=== PATIENT | female | born 1960 ===

== ENCOUNTER 2020-05-04 13:17 | Inpatient (IN) | payer OTHER ==
[~2020-05-04] VITALS: Ht 175.3 cm; Wt 78.9 kg
[2020-05-04] MEDS ORDERED: CELEXA 20MG20 MG/TAB PO (14:17)
[2020-05-04] MEDS ORDERED: ONE-A-DAY ESSE1 EACH PO (14:18)
[2020-05-04] MEDS ORDERED: TURMERIC (14:18)
[2020-05-04 15:01] LABS: BASO % 0.2 % (0.0-2.0); EOS # 0.2 (0.0-0.7); EOS % 1.4 % (0-4.0); GRAN # 13.2 (1.4-6.5); GRAN % 79.3 % (42.2-75.2); HEMATOCRIT 41.3 % (37.0-47.0); HEMOGLOBIN 13.8 g/dl (12.5-16.0); LYMPH # 2.3 (1.2-3.4); LYMPH % 13.7 % (20.0-51.0); MEAN CELL VOLUME 93 fl (80.0-100.0); MEAN CORPUSCULAR HEMOGLOBIN 31 pg (27.0-31.0); MEAN CORPUSCULAR HGB CONC 33 g/dl (33.0-37.0); MEAN PLATELET VOLUME 9.2 fl (7.4-10.4); MONO # 0.8 (0.1-0.6); MONO % 4.9 % (1.7-9.3); PLATELET COUNT 244 K/mm3 (130-400); RED BLOOD COUNT 4.45 M/mm3 (4.10-5.30); REDCELL DISTRIBUTION WIDTH-CV 13.2 % (11.5-14.5)
[2020-05-04 15:07] LABS: PROTHROMBIN TIME 11.6 SECONDS (9.7-12.8)
[2020-05-04 15:16] LABS: ALBUMIN 4.3 gm/dL (3.5-5.0); BILIRUBIN,TOTAL 0.4 mg/dL (0.0-1.0); CALCIUM 9.9 mg/dL (8.4-10.2); CREATININE, serum 0.86 (0.52-1.25); POTASSIUM 3.9 mmol/L (3.4-5.0); TOTAL PROTEIN 7.3 gm/dL (6.4-8.2)
[2020-05-04 15:19] VITALS: BP 122/70; PULSE 83; TEMP 99
[2020-05-04 15:24] LABS: PRE ALBUMIN 31.1 mg/dL (17.6-36.0)
[2020-05-04 16:06] LABS: COLLECTION METHOD CLEAN CATCH
--- NOTE | 2020-05-04 16:07 | NUR ---
[employer]bi Sharpshooter met with the patient and the patient's daughter, Nataliya to complete intake. The patient lives in [place] with Nataliya and other family members. The patient has a wheelchair, walker, and cane at her disposal. The patient is independent. The patient does not have a PCP but was agreeable to setting up at [facility]. The patient receives medications from [facility]. The patient does not have advanced directives. The patient is not but has two adult children, Nataliya and Tr. The patient is self-pay. Jeannine [facility], financial counselor consulted. Jeannine to assist with Medicaid application on 2.10 in the morning. The patient will likely be needing post acute rehab. [facility] discussed options. The choices are [facility], [facility], and [facility]. Referrals sent. [facility] contacted Meeta at [facility] regarding PCP for the patient. Dr. India Hamilton is taking new patients. Meeta to fax new patient application to this for the patient to fill out. [facility] collaborated the above information with the patient's nurse.
[2020-05-04 16:13] LABS: MUCOUS Present /lpf; PH 9 (5-8); SQUAMOUS EPITHELIAL 20-50 /hpf; URINE APPEARANCE Cloudy; URINE BACTERIA Moderate /hpf; URINE BILIRUBIN Negative (NEGATIVE); URINE BLOOD 1+ (NEGATIVE); URINE COLOR Yellow; URINE GLUCOSE Negative (NEGATIVE); URINE KETONE Negative (NEGATIVE); URINE LEUKOCYTE ESTERASE 3+ (NEGATIVE); URINE NITRATE Negative (NEGATIVE); URINE PROTEIN(semi-quant) 1+ (NEGATIVE); URINE RBC 0-2 /hpf; URINE UROBILINOGEN Negative (NEGATIVE)
--- NOTE | 2020-05-04 16:29 | NUR ---
Vinayak from ortho in to see patient. Dr. Wright in to see patient.
--- NOTE | 2020-05-04 18:41 | NUR ---
Patient doing well this afternoon, sitting up eating dinner, daughter at bedside. Denies pain at this time. Pedal pulses intact. Prince hose to LLE. Daughter at bedside. Denies furhter needs at this time. Reported off to awake overnight monitor.
[2020-05-04 19:56] VITALS: BP 98/66; PULSE 85; TEMP 98.7
--- NOTE | 2020-05-04 20:44 | NUR ---
Patient resting in bed with no complaints. Alert and oriented. SCDs on BLE and Prince hose on LLE. Felipe draining clear yellow urine. Patient will be NPO at midnight for surgery. No other needs at this time. Call light in reach.
[2020-05-05] VITALS (10 sets, daily range): BP systolic 99–125; BP diastolic 60–80; PULSE 76–102; TEMP 97.4–99.3
--- NOTE | 2020-05-05 07:44 | NUR ---
Pt doing well at this time. Rates pain 3/10, Exp wheezes, heart rate regular and bowel sounds present all 4 quadrants. SCDs on bilaterally, IV to her left wrist. She is stating that the pain she is currently having is in her left foot. Minimal swelling notes, will notify physician. Elana Mo working with patient as well. Patient aware that surgery is scheduled for 1000. Will continue to monitor
--- NOTE | 2020-05-05 09:08 | NUR ---
Initial visit; Patient thanked Retail Assistant Store Manager for looking in on her and offering prayer and God's blessings prior to her surgical procedure. Retail Assistant Store Manager will follow up.
--- NOTE | 2020-05-05 09:12 | NUR ---
Remains NPO. VSS. Pt going for brigid-arthroplasty @ 1000, consent signed. Celexa and Nicotine patch given, other 0900 meds held due to NPO for surgery. Dentures removed and soaking in bedside cup. Clean gown applied.
--- NOTE | 2020-05-05 09:30 | NUR ---
Patient having complaints of pain. Physician aware of the left ankle pain. Consent signed for surgery. Pain medication given, will continue to monitor
--- NOTE | 2020-05-05 11:00 | NUR ---
Pt continues to have complaints of pain in her right hip. Pain medication given at this time. Her daughter is with her, will continue to monitor.
--- NOTE | 2020-05-05 13:54 | NUR ---
Manager Community Development received new patient packet and gave it to the patient and her daughter to complete.
--- NOTE | 2020-05-05 16:30 | NUR ---
Pt back from surgery. She is doing well with no pain complaints. YOLANDA EATON. Educated her on pain management. Daughter with her at this time. Gave her some clear liquids and crackers.
--- NOTE | 2020-05-05 19:00 | NUR ---
Pt continued to do well. Tolerated general diet. She is getting more feeling back, pain medication given. Report given
--- NOTE | 2020-05-05 19:04 | NUR ---
RECEIVED CHANGE OF SHIFT REPORT FROM DAY SHIFT NURSE.
[2020-05-06] VITALS (7 sets, daily range): BP systolic 115–136; BP diastolic 59–82; PULSE 56–98; TEMP 97.9–99
--- NOTE | 2020-05-06 05:09 | NUR ---
AGREED TO TAKE PAIN MEDS AT THIS TIME FOR COMFORT MAINTENANCE. DENIES CHEST PAIN/SHORTNESS OF BREATH/NAUSEA AT THIS TIME. NGUYEN DRAINING CLEAR YELLOW URINE. IVF INFUSING WITH NO PROBLEMS.
[2020-05-06 06:19] LABS: HEMOGLOBIN 11.9 g/dl (12.5-16.0)
--- NOTE | 2020-05-06 07:09 | NUR ---
Dr Staley has been in to see patient, new orders received. Xray completed. Pt requesting pain medication at this time.
--- NOTE | 2020-05-06 07:14 | NUR ---
CHANGE OF SHIFT REPORT GIVEN TO DAY SHIFT NURSE, JOSESITO Powell RN.
--- NOTE | 2020-05-06 07:39 | NUR ---
Pt still having pain after receiving 1 tab [place], 2nd tab given. KERLINE Willams working with patient at this time. Breakfast has been ordered and went over new orders and plan for the day.
--- NOTE | 2020-05-06 09:37 | NUR ---
Follow up visit; Patient thanked Utility Bill Collector for checking on her and offering continued healing.
--- NOTE | 2020-05-06 10:04 | NUR ---
OT has been in and worked with patient. She is sitting up on the side of the bed. States pain is 3/10 and feels good. Informed her that PT would be soon. Jeannine with financial assistance notified as well as social work regarding paperwork and financial needs. Daughter is present in the room, no other needs, will continue to monitor.
--- NOTE | 2020-05-06 11:22 | NUR ---
Pt continues to use the IS. She has been doing it about every 30 min with proper technique
--- NOTE | 2020-05-06 13:26 | NUR ---
The patient completed the patient registration packet for [facility]. Flight Communications Specialist faxed the packet to Meeta with [facility]. Awaiting on PCP acceptance.
--- NOTE | 2020-05-06 14:11 | NUR ---
Double Bottom Driver collaborated with Jeannine Victoria with finance to complete releases and signature page.
--- NOTE | 2020-05-06 15:18 | NUR ---
Pt restin with eyes closed and even non labored breathing
--- NOTE | 2020-05-06 15:52 | NUR ---
Pt doing well. She is voiding with no difficulty since having dent removed. Report given to TERRY Diamond
--- NOTE | 2020-05-06 16:00 | NUR ---
Patient crying and has compaints of pain in right hip after the aide assisted with getting the patient out of bed and in the bathroom. TERRY Reyes aware and pain medication given, will continue to monitor. Patient A&Ox3. VSS. IV CDI. Right hip dressing CDI. Ice on right hip. Call light within reach
--- NOTE | 2020-05-06 18:27 | NUR ---
Nurse assisted patient to the bathroom with gait belt and walker 1xassist. Patient tolerated well. Reports pain is not as bad since taking pain medication. SCD bilateral legs. Ice on right hip No further needs expressed from the patient. Call light within reach
--- NOTE | 2020-05-06 19:15 | NUR ---
RECEIVED CHANGE OF SHIFT REPORT FROM DAY SHIFT NURSE.
--- NOTE | 2020-05-06 20:00 | NUR ---
DECREASED ROM/STRENGTH TO RHIP POST HIP SURGERY. DENIES NUMBNESS/TINGLING TO EXTREMITIES. DENIES CHEST PAIN/SHORTNESS OF BREATH AT THIS TIME. SEE eMAR FOR PAIN MEDS GIVEN FOR COMFORT MAINTENANCE S/P HIP SX.
--- NOTE | 2020-05-06 23:26 | NUR ---
DENIES NEEDS AT THIS TIME, RESTING QUIETLY IN BED, AWAKENS WHEN DOOR TO ROOM IS OPENED BY STAFF.
[2020-05-07] VITALS (8 sets, daily range): BP systolic 92–124; BP diastolic 50–71; PULSE 95–107; TEMP 98.6–100
--- NOTE | 2020-05-07 04:02 | NUR ---
REQUESTED AND GIVEN MED FOR COMPLAINT OF NAUSEA. DENIES NEED FOR PAIN MEDS AT THIS TIME. SEE eMAR FOR MED GIVEN.
[2020-05-07 07:06] LABS: BASO % 0.3 % (0.0-2.0); EOS # 0.1 (0.0-0.7); GRAN # 7.9 (1.4-6.5); GRAN % 70.3 % (42.2-75.2); HEMOGLOBIN 11.5 g/dl (12.5-16.0); LYMPH # 2.2 (1.2-3.4); LYMPH % 19.9 % (20.0-51.0); MEAN CELL VOLUME 95 fl (80.0-100.0); MEAN CORPUSCULAR HEMOGLOBIN 31 pg (27.0-31.0); MEAN CORPUSCULAR HGB CONC 33 g/dl (33.0-37.0); MEAN PLATELET VOLUME 10.6 fl (7.4-10.4); MONO # 0.9 (0.1-0.6); MONO % 8.1 % (1.7-9.3); PLATELET COUNT 196 K/mm3 (130-400); REDCELL DISTRIBUTION WIDTH-CV 13.6 % (11.5-14.5)
--- NOTE | 2020-05-07 07:13 | NUR ---
CHANGE OF SHIFT GIVEN TO DAY SHIFT NURSESHRUTHI.
[2020-05-07 07:20] LABS: HEMATOCRIT 35.2 % (37.0-47.0)
--- NOTE | 2020-05-07 08:00 | NUR ---
Patient in bed resting. Alert and oriented x 3. Assessment complete. Denies pain at this time. Aquacell to right hip with scant drainage present. Ice to right hip. Prince hose and SCDs to BLE. Patient up to restroom with SBA and walker. Denies further needs at this time.
--- NOTE | 2020-05-07 09:23 | NUR ---
Daughter at bedside. Patient denies needs at this time. Patient states she would like to go to rehab after discharge, notified [facility].
--- NOTE | 2020-05-07 10:10 | NUR ---
The patient had expressed not wanting to go to post acute rehab the past couple of days. The patient doing well and PT is recommending home with OP PT. However, the patient has now decided to go to post acute rehab. The patient is Medicaid pending. [facility] discussed sending out additional referrals. The patient was agreeable. [facility] faxed additional referrals to [facility] and [facility]. [facility] is still reviewing the referral. Araceli with [facility] reports the patient would have to private pay if she were to go there. They do not take Medicaid pending. [facility] contacted [facility] and the patient will be able to establish care with Dr. India Hamilton. Awaiting responses.
[2020-05-07 10:37] LABS: ALBUMIN 3.5 gm/dL (3.5-5.0); BILIRUBIN,TOTAL 0.4 mg/dL (0.0-1.0); CALCIUM 8.7 mg/dL (8.4-10.2); CREATININE, serum 0.92 (0.52-1.25); TOTAL PROTEIN 6.3 gm/dL (6.4-8.2)
[2020-05-07 10:44] LABS: COLLECTION METHOD CLEAN CATCH
[2020-05-07 10:53] LABS: PH 7 (5-8); SQUAMOUS EPITHELIAL 0-2 /hpf; URINE APPEARANCE Hazy; URINE BACTERIA Rare /hpf; URINE BILIRUBIN Negative (NEGATIVE); URINE BLOOD Negative (NEGATIVE); URINE COLOR Yellow; URINE GLUCOSE Negative (NEGATIVE); URINE KETONE Negative (NEGATIVE); URINE LEUKOCYTE ESTERASE Negative (NEGATIVE); URINE NITRATE Negative (NEGATIVE); URINE PROTEIN(semi-quant) Negative (NEGATIVE); URINE RBC None Seen /hpf; URINE UROBILINOGEN Negative (NEGATIVE); URINE WBC 0-2 /hpf
--- NOTE | 2020-05-07 11:54 | NUR ---
Dr. Staley in to see patient.
--- NOTE | 2020-05-07 13:09 | NUR ---
Dr. Staley staffed with this Pet Care Worker regarding the patient's safest discharge disposition. He is recommending the patient can return home at discharge. Since the patient is ambulating well in the halls. SW met with the patient to discuss the above. She is happy she is ambulating in the halls and feels comfortable going home with her family since she is making and will continue to make progress at home once she discharges. [facility] collaborated the above information with the team.
--- NOTE | 2020-05-07 18:18 | NUR ---
Patient has done well throughout the day. Has been up to restroom with SBA and walker, steady gait. Patient states she has minimal pain to RLE. Pain medications given this afternoon for pain 4/10 to RLE. ICE to right hip. Denies furhter needs at this time. Will report off to grease renderer.
--- NOTE | 2020-05-07 21:26 | NUR ---
MEDICATED WITH HS MEDS INCLUDING OXYCODONE 10MG PO FOR PAIN 6/10 TO RIGHT HIP, ESPECIALLY AFTER WALKING. USING IS WELL, TEMP 99.9. SL TO RIGHT WRIST FLUSHES WELL.
--- NOTE | 2020-05-08 00:13 | NUR ---
PT STILL HAS TEMP 99.9. DENIES NEED FOR PAIN MEDS AT THIS TIME. RT LEG REMAINS SWOLLEN, HERMINIO HOSE ARE OFF.
[2020-05-08 03:41] VITALS: BP 97/67; PULSE 104; TEMP 98.8
[2020-05-08 03:48] VITALS: BP 128/56; PULSE 75; TEMP 99.4
--- NOTE | 2020-05-08 05:00 | NUR ---
DENIES NEED FOR PAIN MEDS AT THIS TIME.
[2020-05-08 06:20] LABS: HEMOGLOBIN 11.5 g/dl (12.5-16.0); MEAN CELL VOLUME 94 fl (80.0-100.0); MEAN CORPUSCULAR HEMOGLOBIN 32 pg (27.0-31.0); MEAN CORPUSCULAR HGB CONC 34 g/dl (33.0-37.0); PLATELET COUNT 213 K/mm3 (130-400); RED BLOOD COUNT 3.65 M/mm3 (4.10-5.30); REDCELL DISTRIBUTION WIDTH-CV 13.7 % (11.5-14.5)
[2020-05-08 06:24] LABS: HEMATOCRIT 34.2 % (37.0-47.0)
[2020-05-08 06:32] LABS: CALCIUM 8.7 mg/dL (8.4-10.2); CREATININE, serum 0.78 (0.52-1.25); POTASSIUM 4.1 mmol/L (3.4-5.0)
--- NOTE | 2020-05-08 08:00 | NUR ---
Patient in bed resting. Alert and oriented x 3. Assessment complete. Aquacell to right hip with minimal drainage present. Pain meds given early this AM for 6/10 pain to right hip. Denies further needs at this time.
[2020-05-08 08:18] VITALS: BP 105/60; PULSE 103; TEMP 99.4
[2020-05-08] MEDS ORDERED: ASPIRIN 32325 MG/TAB PO (08:40)
[2020-05-08] MEDS ORDERED: VITAMIN C500 MG PO (08:41)
[2020-05-08] MEDS ORDERED: TYLENOL 325MG325 MG PO (08:41)
[2020-05-08] MEDS ORDERED: OSCAL 500 TAB500 MG PO (08:41)
[2020-05-08] MEDS ORDERED: NORCO 325 MG-51 TAB PO ×2 (08:42→08:49)
--- NOTE | 2020-05-08 11:00 | NUR ---
Discharge education provided to patient and daughter. Educated on when to call provider and scheduling follow up appointment. Patient educated on all new medications. Scrips for xarelto and norco given to patient. Provided patient with new dressing to change 4 days after discharge per Ortho. All questions answered. No further needs at this time. Patient dressed with minimal assistance. Patient out by wheelchair with surgical staff.
--- NOTE | 2020-05-08 11:48 | NUR ---
Patient has discharged home today 05/08 with family. There are no further needs at this time.
[2020-05-08 11:55] VITALS: BP 155/80; PULSE 89; TEMP 98.2
== END 2020-05-08 11:00 | disposition home or self-care (01) | DRG 522 ==
LOC: MEDICAL 13:17 → SURG 14:00
PROVIDERS: Physician Assistant; ADMIT Orthopaedic Surgery
PROC: 0SR90J9 Replacement of Right Hip Joint with Synthetic Substitute, Cemented, Open Approach (ICD-10-PCS; principal; 2020-05-05 12:00)
DX: S72.091A Other fracture of head and neck of right femur, initial encounter for closed fracture (principal); W18.30XA Fall on same level, unspecified, initial encounter; Y93.9 Activity, unspecified; F17.200 Nicotine dependence, unspecified, uncomplicated; M19.90 Unspecified osteoarthritis, unspecified site; F41.9 Anxiety disorder, unspecified; F32.9 Major depressive disorder, single episode, unspecified; I95.9 Hypotension, unspecified; R50.9 Fever, unspecified; Z90.49 Acquired absence of other specified parts of digestive tract; Z87.01 Personal history of pneumonia (recurrent); F17.210 Nicotine dependence, cigarettes, uncomplicated
CPT/HCPCS: 99222-AI; 99231-AI; 99232-AI; 99239; A9284; C1776; J0690; J0696; J2250; J2270; J2405; J2704; J2795; J7030